=== PATIENT | male | born 1990 | race Hispanic/Latino ===

== ENCOUNTER 2018-12-26 00:37 | Emergency (ER) | payer BC ==
[~2018-12-26] VITALS: Ht 180.3 cm; Wt 107.5 kg
[2018-12-26] MEDS ORDERED: TETANUS/DIPHTHERIA TOX ADULT 0.5 ML SYR IM STA (00:50)
[2018-12-26] MEDS ORDERED: LIDOCAINE 1% 5ML-MPF INJ STA (00:55)
[2018-12-26] MEDS ORDERED: TETANUS/DIPHTHERIA TOX ADULT 0.5 ML SYR ONE (01:30)
[2018-12-26] MEDS ORDERED: BACITRACIN ZINC 0.9GM TP ONE (01:37)
== END 2018-12-26 01:43 | disposition home or self-care (01) ==
LOC: FSED 00:37
DX: S81.812A Laceration without foreign body, left lower leg, initial encounter (principal); W25.XXXA Contact with sharp glass, initial encounter; Y99.0 Civilian activity done for income or pay
CPT/HCPCS: 90471; 90714; 99282